=== PATIENT | male | born 1990 | race Caucasian/White ===

== ENCOUNTER 2024-12-21 13:23 | Outpatient (AMB) | payer BC, SELFPAY ==
--- NOTE | 2024-12-21 13:25 | A.OFFPC_ITS ---
Vital Signs 12/21/24 13:32 Height 5 ft 11 in Weight 230 lb 2 oz BMI 32.1 BP 136/85 Blood Pressure Location Rt brachial Position Sitting Respiration 16 Pulse 73 Pulse Source Pulse Oximeter Temp 97.7 F Temp Source Oral Pulse Oximetry (%) 96 Oxygen Delivery Method Room Air Intake Visit Reasons: Est care Intake Note: patient here for new patient visit Guide Tour Required: No Allergies No Known Allergies Allergy (Verified 12/21/24 13:43) Medication List - Last Reconciled 12/21/24 by Colleen Hernandez CNP No Known Home Meds Tobacco use date assessed: 12/21/24 Dental Screening Dental Screen Date: 12/21/24 Did you have a dental visit in the last 12 months?: Yes Did you have a dental problem in the last 6 months where you did not have access to dental care?: No Was dental information given to patient?: Patient has dentist HPI HPI Comments History of Present Illness Details 34-year-old male presents to [facility] c are. Prior PCP? - [facility] Last office visit/CPE/labs - About 8 years ago Acute issue(s) - Reports trouble fall and staying aslee p. He snores. - Reports chronic back pain for the past 15 years. He describes the pain as sharp shooting. The pain intensifies with certain movement. He denies tingling, numbness, or loss of sensation. No acute symptoms at this time. No fall, injury, trauma. He takes cannabis edibles for pain. He does not like to take pain medication. However, he sometimes takes ibuprofen. Past Medical History - Hyperopia (wears prescription glasses) Surgical History - None Family History - Dad: HTN - MGM: Alcohol abuse Social History - Former smoker, smoked 5 cigarettes avi ly on/off x 10 years. Does not vape. Drinks 4 beer and whiskey monthly. Eats cannabis gummies for sleep - Has been making unhealthy dietary mccord zhao. Active but does not exercise. Reports trouble falling and maintaining sleep Health maintenance - Last eye exam was over a year ago. He notes that he will follow up for an eye exam - Last dental visit was a year ago; enco uraged to schedule an appointment with his dentist for routine dental care - Last tetanus vaccine was 3 years ago. 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 1. Little interest or pleasure in doing things: several days 2. Feeling down, depressed, or hopeless: not at all 3. Trouble falling or staying asleep, or sleeping too much: several days 4. Feeling tired or having little energy: several days 5. Poor appetite or overeating: several days 6. Feeling bad about yourself - or that you are a failure or have let yourself or your family down: not at all 7. Trouble concentrating on things, such as reading the newspaper or watching television: not at all 8. Moving or speaking so slowly that other people could have noticed. Or the opposite - being so fidgety or restless that you have been moving around a lot more than usual: several days 9. Thoughts that you would be better off or of hurting yourself in some way: not at all Total score: 5 Depression Screening Interpretation: Positive Depression Screening Done: Yes 57478 - PHQ-9 Billing: Yes Source: Developed by Drs. Víctor Rosen, Josi Villegas, Gaston Mcadams and colleagues, with an educational lily from [employer]. Thrive Questionnaire Date Thrive assessed: 12/21/24 I am a: Patient What is your living situation today?: I have a steady place to live Within the past 12 months, did the food you bought not last and you didn't have the money to get more?: Never true Within the past 12 months, did you worry whether your food would run out before you got money to buy more?: Never true Do you have trouble paying for medicines?: No Do you have trouble getting transportation to medical appointments?: No Do you have trouble paying your heating and electricity bill?: No Do you have trouble taking care of your child, family member or friend?: No Do you have trouble with day-to-day activities such as bathing, preparing meals, shopping, managing finances, etc.?: No Are you currently unemployed and looking for a job?: No Are you interested in more education?: No Please select the resources that you would like help with: None Currently or been in a relationship where the following occur: No concerns reported THRIVE Score: 0 AUDIT C Alcohol Use Questionnaire (AUDIT-C) 1. How often do you have a drink containing alcohol?: 2-4 times a month 2. How many drinks containing alcohol do you have on a typical day when you are drinking?: 1 or 2 3. How often do you have six or more drinks on one occasion?: Less than monthly Total Score: 3 Score Reviewed/Action Taken: Yes SHAREE-7 AMB Questionnaire SHAREE-7 Date SHAREE - 7 assessed: 12/21/24 Feeling nervous, anxious, or on edge: 0 = Not at all Not being able to stop or control worryin = Not at all Worrying too much about different things: 0 = Not at all Trouble relaxin = Several days Being so restless that it is hard to sit still: 1 = Several days Becoming easily annoyed or irritable: 1 = Several days Feeling afraid as if something awful might happen: 0 = Not at all Total SHAREE-7 score (0-4 normal; 5-9 mild; 10-14 moderate; 15-21 severe): 3 Source: Developed by Drs. Víctor Rosen, Josi Villegas, Gaston Mcadams and colleagues, with an educational lily from [employer]. SHAREE-7 Assessment Billing SHAREE-7 Assessment Tool: SHAREE-7 Assessment 34044 Review of Systems Const Details: Denies chills, Denies fatigue, Denies fever(s), Denies headache(s) and Denies weakness HEENT Denies change in vision, Denies dizziness, Denies headache(s), Denies hearing loss, Denies nasal congestion, Denies sinus pain, Denies sinus pressure and Denies sore throat Card Denies chest pain, Denies lightheadedness, Denies dyspnea and Denies other (palpitations) Resp Denies cough, Denies dyspnea and Denies wheezing GI Denies abdominal pain, Denies melena, Denies hematochezia, Denies change in bowel habits, Denies dyspepsia and Denies nausea Denies hematuria and Denies dysuria Musc Reports chronic low back pain, Denies abnormal gait, Denies numbness and Denies tingling Skin/Breast Denies rash, Denies unusual bruising and Denies wounds Neuro Denies abnormal gait, Denies dizziness, Denies headache(s), Denies memory loss, Denies numbness, Denies Sensory deficit (Neuro), Denies tingling and Denies weakness Psych Denies anxiety, Denies depression and Denies memory loss Endo Denies cold intolerance, Denies fatigue, Denies heat intolerance, Denies polydipsia and Denies polyuria Elio/Lymph Denies easy bleeding and Denies easy bruising Aller/Immun Denies wheezing Physical exam (Primary Care) Vital Signs: Last Vital Signs Temp 97.7 F 12/21/24 13:32 Pulse 73 12/21/24 13:32 Resp 16 12/21/24 13:32 BP 136/85 12/21/24 13:32 Pulse Ox 96 12/21/24 13:32 Oxygen Delivery Method Room Air 12/21/24 13:32 BMI result Body Mass Index 32.1 Tobacco/Smoking Status: Tobacco use Status Tobacco use date assessed 12/21/24 12/21/24 13:31 Patient Tobacco Use Status Former Tobacco user 12/21/24 13:31 e-Cigarette/Vaping Use Never Used 12/21/24 13:31 PHQ-9: PHQ-9 Score PHQ-9: Total score 5 12/21/24 13:31 Depression Screening Interpretation: Positive Thrive Assessment: Date of Thrive Assessment Date Thrive assessed 12/21/24 12/21/24 13:31 Currently or been in a relationship where the following occur: No concerns reported Const Other: General: no acute distress, well developed, alert and awake Nutritional Appearance: well nourished Orientation/consciousness: patient oriented x3 HENMT Head: Yes normocephalic and Yes atraumatic Ears: hearing grossly normal bilaterally and TM's normal bilaterally General nose exam: Normal external nose present and Normal nares present Mouth: Normal oral and palatal mucosa present and moist mucous membranes Teeth and gingiva: dentition normal Throat: Yes oropharynx normal Eyes Pupils: Equal, round and reactive pupils present and Pupil accommodation reflex normal EOM: EOMs intact bilaterally Neck Neck: Yes normal visual inspection, Yes no lymphadenopathy and Yes trachea midline Thyroid: Thyroid normal Carotids: no bruits Lymphatic: no lymphadenopathy noted Chest Chest palpation & inspection: normal inspection of the chest Resp Effort & Inspection: normal respiratory effort Auscultation: clear to auscultation bilaterally Cardio Rate: regular rate Rhythm: regular rhythm Heart sounds: S1 normal heart sound present, S2 normal heart sound present, no gallops, no murmurs and no rubs Bruits: no abdominal aortic bruits and no carotid bruits GI Palpation (GI): No Abdominal aortic bruit present, Soft to palpation, nontender, No hepatosplenomegaly present and No Rebound tenderness present Auscultation: normal bowel sounds General: Yes no CVA tenderness Back/Spine/Pelvis Back: no CVA tenderness Cervical Spine: cervical ROM normal and No Cervical spine tenderness Thoracic/Lumbar Spine: thoraco-lumbar ROM normal, No pain with thoraco-lumbar ROM, No thoracic spinal tenderness and No lumbar spinal tenderness Skin General: warm and dry. Normal skin color. Normal skin turgor Lesions: no lesions Rashes: no rashes Trauma: no lacerations or abrasions Wounds: no wounds Nails: normal Neuro General: patient oriented x3, gait normal and CN's II-XI intact bilaterally Cranial nerves: Yes Equal, round and reactive pupils present Cognition (Neuro): normal cognition Gait exam (Neuro): Normal gait present Motor exam (neuro): 5/5 motor strength present throughout Sensory Exam: No Sensory deficit (Neuro) Deep tendon reflexes (DTR's): Right patellar reflex intensity grade: 2+ and Left patellar reflex intensity grade: 2+ Extrem General: Yes normal to inspection, No edema and No calf tenderness Psych Appearance: grossly normal Affect: normal affect Attitude: cooperative Thought process: Normal thought process present Coding Level of Care Code New Pt Level 4 (37820) New Pt Prev Care 18-39yr(94152 Diagnoses Normal physical examination, routine Z00.00 Chronic low back pain M54.50; G89.29 Sleep disturbance G47.9 Laboratory tests ordered as part of a complete physical exam (CPE) Z00.00 Additional Codes SHAREE-7 Assessment Billing - SHAREE-7 Assessment Tool: SHAREE-7 Assessment 91246 ([id number]) PHQ-9 - 37267 - PHQ-9 Billing: Yes ([id number]) Assessment & Plan Assessment & Plan (1) Normal physical examination, routine: Code(s): Z00.00 - Encounter for general adult medical examination without abnormal findings Category: Medical Plan: No significant functional limitation noted. Perform lab work and imaging and follow-up for telehealth visit for labs/imaging review in 2-3 weeks. Return sooner with symptoms or concerns. Verbalized understanding and agreed with the plan. (2) Chronic low back pain: Code(s): M54.50 - Low back pain, unspecified; G89.29 - Other chronic pain Category: Medical Plan: Reports chronic back pain for the past 15 years. He describes the pain as sharp shooting. The pain intensifies with certain movement. He denies tingling, numbness, or loss of sensation. No acute symptoms at this time. No fall, injury, trauma. He takes cannabis edibles for pain. He does not like to take pain medication. However, he sometimes takes ibuprofen. May take Tylenol ibuprofen for pain or discomfort. Warm/cool compresses encouraged. Light stretching as tolerable encouraged. X-ray of lumbar spine ordered. Follow-up with worsening or new symptoms. Verbalized understanding and agreed with the plan. (3) Sleep disturbance: Code(s): G47.9 - Sleep disorder, unspecified Category: Medical Plan: Reports trouble fall and staying asleep. He snores. Instructed on sleep hygiene. Referred to sleep medicine for sleep study. Follow-up as needed. Verbalized understanding and agreed with the plan. (4) Laboratory tests ordered as part of a complete physical exam (CPE): Code(s): Z00.00 - Encounter for general adult medical examination without abnormal findings Category: Medical Plan: Fasting labs ordered as part of a complete physical exam. Advised to fast for at least 10 hours before getting labs drawn. May drink water Verbalized understanding and agreed with treatment plan. Orders: Orders Lipid Panel Today Z00.00 - Encounter for general adult medical examination without abnormal findings Microalbumin, Random (w Creat) Today Z00.00 - Encounter for general adult medical examination without abnormal findings TSH reflex Free T4 Today Z00.00 - Encounter for general adult medical examination without abnormal findings XR lumbar spine 2-3V Today G89.29 - Other chronic pain, M54.50 - Low back pain, unspecified Complete Blood Count Auto Diff Today Z00.00 - Encounter for general adult medical examination without abnormal findings Comprehensive Central. Panel Fast Today Z00.00 - Encounter for general adult medical examination without abnormal findings UA CC w/rflx Micro + Cult Today Z00.00 - Encounter for general adult medical examination without abnormal findings Vitamin D 25-OH Total Today Z00.00 - Encounter for general adult medical examination without abnormal findings Referrals Sleep Medicine Referral G47.9 - Sleep disorder, unspecified
[2024-12-21 13:32] VITALS: BP 136/85; PULSE 73; RESP 16; TEMP 36.5; O2SAT 96; BMI 32.1
--- OUTSIDE RECORDS SUMMARY | 2024-12-21 13:41 | XMS_ITS | Clinical Summary ---
Author Organization [facility] Address [address] [place] [address] Phone Care Team Providers Care Sand Plant Attendant Name Role Phone Unavailable Primary Care Provider Unavailabl e Social History Tobacco Use Types Packs/Day Years Used Date Smoking Tobacco: Never Assessed Sex and Gender Information Value Date Recorded Sex Assigned at Not on file Legal Sex Male 6:19 PM EDT Gender Identity Not on file Sexual Orientation Not on file Plan of Treatment Health Maintenance Due Date Last Done Comments MMR Vaccines (1 of 1 - Stand radha series) 1989 Varicella Vaccines (1 of 2 - 13+ 2-dose series) 2001 DTaP,Tdap,and Td Vaccines (1 - Tdap) 2006 Hepatitis B Vaccines (1 of 3 - 19+ 3-dose series) 2007 Influenza Vaccines (#1) 2024 COVID-19 Vaccine (2023-2 5 season) 2024 HIB Vaccines Aged Out No longer eligi ble based on patient's age to complete this topic HPV Vaccines Aged Out No longer eligi ble based on patient's age to complete this topic Hepatitis A Vaccines Aged Out No long er eligible based on patient's age to complete this topic IPV Vaccines Aged Out No longer eligi ble based on patient's age to complete this topic Men B Vaccine Aged Out No longer elig ible based on patient's age to complete this topic Meningococcal Vaccine Aged Out No antonio kareem eligible based on patient's age to complete this topic Pneumococcal Vaccine Aged Out No long er eligible based on patient's age to complete this topic
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
== END 2024-12-21 14:08 | disposition home or self-care (01) ==
LOC: HO.HMCFM 13:24
PROVIDERS: PCP Nurse Practitioner Family; Visit Provider Nurse Practitioner Family
DX: Z00.00 Encounter for general adult medical examination without abnormal findings (principal); M54.50 Low back pain, unspecified; G89.29 Other chronic pain; G47.9 Sleep disorder, unspecified

== ENCOUNTER → 2024-12-21 13:23 | Outpatient (BNVA) | payer BC, SELFPAY | PROVIDERS: PCP Nurse Practitioner Family; Visit Provider Nurse Practitioner Family | DX: Z00.00 Encounter for general adult medical examination without abnormal findings (principal); M54.50 Low back pain, unspecified; G89.29 Other chronic pain; G47.9 Sleep disorder, unspecified | CPT/HCPCS: 96127 ==

== ENCOUNTER 2025-01-16 08:37 | Outpatient (REF) | payer BC, SELFPAY ==
--- NOTE | ~2025-01-16 | XR_ITS ---
CLINICAL HISTORY: M54.50 - Low back pain, unspecified Radiographs of the lumbar spine, 3 views Comparison: None Findings: Trace levocurvature with the apex at L2/L3. No fracture. The vertebral body heights are preserved. There is moderate intervertebral disc space narrowing at L5/S1. The other intervertebral disc spaces are preserved. Mild endplate osteophytosis at the superior endplate of L4. Mild mid and lower lumbar facet hypertrophy. The soft tissues are normal. Impression: No acute findings. [id number] degenerative change. This document has been electronically signed by: Justine Bravo MD on 01/17/2025 13:21:58
[2025-01-16 08:57] LABS: MANUAL DIFF FLAG NO
--- OUTSIDE RECORDS SUMMARY | 2025-01-16 08:57 | XMS_ITS | Clinical Summary ---
Author Organization [facility] Address [address] [place], [place] [id number] Phone Care Team Providers Care Dialysis Equipment Technician Name Role Phone Unavailable Primary Care Provider [...]
[2025-01-16 09:41] LABS: Basophils Absolute Auto 0.1 X10*3/uL (0.0-0.2); Eosinophils Absolute Auto 0.2 X10*3/uL (0.0-0.4); Eosinophils Percent Auto 3.4 % (0-4); Hematocrit 45.4 % (42.0-52.0); Hemoglobin 15.6 g/dl (14.0-18.0); Imm Gran Abs Auto 0.06 X10*3/uL (0.00-0.03); Imm Gran Pct Auto 0.9 % (0.0-0.4); Lymphocytes Absolute Auto 2.2 X10*3/uL (1.2-4.9); Lymphocytes Percent Auto 30.9 % (20-40); Mean Corpuscular HGB Conc 34.4 g/dl (31.0-36.0); Mean Corpuscular Hemoglobin 28.2 pg (27.0-33.0); Mean Corpuscular Volume 82.1 fL (80.0-98.0); Mean Platelet Volume 9.7 fL (9.4-12.4); Monocytes Absolute Auto 0.4 X10*3/uL (0.1-1.2); Monocytes Percent Auto 6.2 % (2-11); Neutrophils Percent Auto 57.6 % (45-73); Platelet Count 278 X10*3/uL (160-400); Red Blood Count 5.53 X10*6/uL (4.60-5.80); Red Cell Distribution Width 12.7 % (11.0-16.0)
[2025-01-16 09:46] LABS: Appearance Urine Clear; Color Urine Yellow; Glucose Urine UA Negative (Negative); Leukocyte Esterase Urine Negative (Negative); Nitrite Urine Negative (Negative); Specific Gravity - Urine 1.025 (1.005-1.025); Urine Blood Negative (Negative); Urine Ketones Negative (Negative); Urine Protein Negative (Neg-Trace)
[2025-01-16 10:28] LABS: Alanine Aminotransferase 145 U/L (0-40); Albumin Level 4.6 g/dL (3.5-5.0); Alkaline Phosphatase 60 U/L (39-117); Anion Gap 11 (12-20); Aspartate Amino Transferase 57 U/L (5-37); Bilirubin Total 0.9 mg/dL (0.0-1.0); Blood Urea Nitrogen 13 mg/dL (9-16); Carbon Dioxide 27 mmol/L (22-29); Chloride 105 mmol/L (96-108); Cholesterol 164 mg/dL (<200); Estimated Glomerular Filt Rate > 60; Glucose Fasting 102 mg/dL (60-99); HDL Cholesterol 32 mg/dL (>40); LDL Cholesterol Calculated 97 mg/dL (<100); Potassium 4.1 mmol/L (3.3-5.1); Sodium 139 mmol/L (135-145); Total Protein 7.2 g/dL (6.5-8.0); Triglycerides 179 mg/dL (<150)
[2025-01-16 10:50] LABS: TSH reflex Free T4 1.24 uIU/mL (0.32-4.0); Vitamin D 25-OH Total 24.1 ng/mL (>30)
[2025-01-16 11:01] LABS: Creatinine Urine 202.83 mg/dL; Microalbum/Creatinine Ratio Ur 6.9 ug/mg cr (<30)
== END 2025-01-16 08:38 | disposition home or self-care (01) ==
LOC: HO.XRAY 08:37
PROVIDERS: PCP Nurse Practitioner Family; Visit Provider Nurse Practitioner Family
DX: Z00.00 Encounter for general adult medical examination without abnormal findings (principal); M54.50 Low back pain, unspecified; G89.29 Other chronic pain; Z13.6 Encounter for screening for cardiovascular disorders
CPT/HCPCS: 36415; 72100; 80053; 80061; 81003; 82043; 82306; 82570; 84443; 85025

== ENCOUNTER → 2025-01-16 09:08 | Outpatient (BNV) | payer BC, SELFPAY | PROVIDERS: PCP Nurse Practitioner Family; Visit Provider Radiology Diagnostic Radiology | DX: M51.360 Other intervertebral disc degeneration, lumbar region with discogenic back pain only (principal) | CPT/HCPCS: 72100 ==

== ENCOUNTER 2025-05-07 16:15 | Outpatient (AMB) | payer BC, SELFPAY ==
--- NOTE | 2025-05-07 14:29 | A.OFFPC_ITS ---
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 He admits to making healthy lifestyle changes. He drinks 1-2 beers weekly or occasionally. He has history of chronic low back pain. 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 Víctor Rosen, Josi Villegas, Gaston Mcadams and colleagues, with an educational lily from [employer]. Review of Systems Const Details: Denies chills, Denies fatigue, Denies fever(s), Denies headache(s) and Denies weakness Cardiac Denies chest pain, Denies claudication, Denies leg edema, Denies lightheadedness, Denies palpitations, Denies dyspnea, Denies dyspnea on exertion, Denies orthopnea and Denies other (Loss of consciousness) Resp Denies cough, Denies excessive phlegm production, Denies dyspnea, Denies dyspnea on exertion, Denies snoring and Denies wheezing Musculoskeletal Reports chronic low back pain Physical exam (Primary Care) Tobacco/Smoking Status: Tobacco use Status Tobacco use date assessed 05/07/25 05/07/25 16:15 Patient Tobacco Use Status Former Tobacco user 05/07/25 14:35 e-Cigarette/Vaping Use Never Used 05/07/25 14:35 Thrive Assessment: Date of Thrive Assessment Date Thrive assessed 12/21/24 05/07/25 14:35 Const Other: Patient is alert and oriented x3 Telehealth Telehealth Telehealth Platform: Telephone Location of provider rendering services: practice address Location of patient: address on file Patient Identification confirmed using: Name, : Yes Telehealth method: voice only Patient verbally consented to treatment: Yes Patient verbally consented to billing insurance company: Yes Patient informed of any privacy concerns related to visit: Yes Coding Level of Care Code Tele Est Pt Level 3 (60193) Diagnoses Elevated fasting glucose R73.01 Dyslipidemia E78.5 Vitamin D deficiency E55.9 Transaminitis R74.01 Chronic low back pain M54.50; G89.29 Time Spent (min) 20 Assessment & Plan Assessment & Plan (1) Elevated fasting glucose: Code(s): R73.01 - Impaired fasting glucose Category: Medical Plan: Recent fasting glucose is slightly elevated, 102. Healthy diet encouraged. Will recheck fasting glucose and make changes as needed. Verbalized understanding and agreed with the plan. (2) Dyslipidemia: Code(s): E78.5 - Hyperlipidemia, unspecified Category: Medical Plan: Recent triglyceride level is slightly elevated, 179, HDL level is slightly low, 32, total cholesterol and LDL levels are normal. Advised to limit foods high in saturated fat and avoid foods high in trans fat. Routine exercise encouraged. Fast for 10-12 hours, may drink water, and performed lipid panel blood work 2-3 days before next visit. Follow-up for a telehealth visit in 2 months. Return sooner with symptoms or concerns. Verbalized understanding and agreed with the plan. (3) Vitamin D deficiency: Code(s): E55.9 - Vitamin D deficiency, unspecified Category: Medical Plan: Recent vitamin-D level is low, 24.1. Inform that the sun is a good source of vitamin-D. Vitamin D3 25 mcg daily ordered; advised to take as prescribed. Will recheck vitamin-D level in 2 months. Verbalized understanding and agreed with the plan. (4) Transaminitis: Code(s): R74.01 - Elevation of levels of liver transaminase levels Category: Medical Plan: Recent AST and ALT levels are elevated, 57 and 145 respectively. Healthy diet/weight management and routine exercise encouraged. Will recheck liver enzymes in 2 months. Verbalized understanding and agreed with the plan. (5) Chronic low back pain: Code(s): M54.50 - Low back pain, unspecified; G89.29 - Other chronic pain Category: Medical Plan: Recent x-ray of lumbar spine revealed mild to moderate degenerative changes. May take Tylenol ibuprofen as needed. Warm/cool compresses encouraged. Referred to physical therapy. Follow up as needed. Verbalized understanding and agreed with the plan. Orders: Orders Liver Panel 2 Months R74.01 - Elevation of levels of liver transaminase levels Vitamin D 25-OH Total 2 Months E55.9 - Vitamin D deficiency, unspecified Glucose Fasting 2 Months R73.01 - Impaired fasting glucose Lipid Panel 2 Months E78.5 - Hyperlipidemia, unspecified Medications: New cholecalciferol (vitamin D3) 25 mcg PO DAILY 90 tabs 2RF 90 days
--- OUTSIDE RECORDS SUMMARY | 2025-05-07 19:06 | XMS_ITS | Clinical Summary ---
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
== END 2025-05-08 07:32 | disposition home or self-care (01) ==
LOC: HO.HMCFM 16:15
PROVIDERS: PCP Nurse Practitioner Family; Visit Provider Nurse Practitioner Family
DX: R73.01 Impaired fasting glucose (principal); E78.5 Hyperlipidemia, unspecified; E55.9 Vitamin D deficiency, unspecified; R74.01 Elevation of levels of liver transaminase levels; M54.50 Low back pain, unspecified; G89.29 Other chronic pain